=== PATIENT | male | born 1955 | race Caucasian/White ===

== ENCOUNTER 2022-03-02 12:09 | Inpatient (IN) | payer MEDICARE, OTHER ==
[~2022-03-02] VITALS: Ht 165.1 cm; Wt 75.2 kg
[~2022-03-02 12:09] MED LIST: LISHYD1012 PO
[2022-03-02] MEDS ORDERED: LOSA50 PO (12:51)
[2022-03-02] MEDS ORDERED: POTA10T PO (12:53)
[2022-03-02 13:49] LABS: BASOPHILS ABSOLUTE AUTO 0.03 K/mm3 (0.00-0.23); BASOPHILS PERCENT AUTO 0 % (0-2); EOSINOPHILS PERCENT AUTO 0 % (0-6); Hematocrit 43.2 % (37.0-53.0); Hemoglobin 16.2 g/dL (13.5-17.5); IMMATURE GRAN ABSOLUTE AUTO 0.05 K/mm3 (0.00-0.10); IMMATURE GRAN PERCENT AUTO 1 % (0-1); LYMPHOCYTES ABSOLUTE AUTO 0.76 K/mm3 (0.84-5.20); LYMPHOCYTES PERCENT AUTO 8 % (21-46); MONOCYTES ABSOLUTE AUTO 0.62 K/mm3 (0.16-1.47); MONOCYTES PERCENT AUTO 6 % (4-13); Mean Corpuscular HGB 33.3 pg (26.0-34.0); Mean Corpuscular HGB Conc 37.5 g/dL (31.5-36.5); Mean Corpuscular Volume 89 fL (80-100); Mean Platelet Volume 9.5 fL (9.1-12.4); NEUTROPHILS ABSOLUTE AUTO 8.67 K/mm3 (1.96-9.15); NEUTROPHILS PERCENT AUTO 86 % (41-73); Platelet Count 217 K/mm3 (150-400); RDW Coefficient Variation 11.6 % (11.7-14.2); RDW Standard Deviation 37.2 fL (35.1-46.3); Red Blood Cell Count 4.86 M/mm3 (4.30-5.90); White Blood Cell Count 10.13 K/mm3 (4.00-11.30)
[2022-03-02 13:51] LABS: Albumin, Blood 3.4 g/dL (3.4-5.0); Albumin/Globulin Ratio 0.8 (0.8-1.8); Bilirubin, Total 1.3 mg/dL (0.1-1.0); Bun/Creatinine Ratio 13.3 (12.0-20.0); Calcium, Blood 9.2 mg/dL (8.5-10.1); Creatinine, Blood 1.05 mg/dL (0.60-1.20); Globulin, Blood 4.4 g/dL (2.2-4.0); Potassium, Blood 2.6 mmol/L (3.5-5.5); Total Protein, Blood 7.8 g/dL (6.4-8.2)
[2022-03-02 14:07] LABS: Influenza A, PCR NEGATIVE (NEGATIVE); Influenza B, PCR NEGATIVE (NEGATIVE); Resp Syncytial Virus, PCR NEGATIVE (NEGATIVE)
[2022-03-02 14:27] LABS: SARS-Cov-2 (COVID-19) PCR, MMC POSITIVE (NEGATIVE)
--- NOTE | 2022-03-02 17:19 | NUR ---
Patient admitted for Hypoxemia & Pneumonia, COVID + isolation precautions in place. Patient reports frequent productive cough, denies pain/discomfort. Vitals stable, afebrile, saturations stable on 2L/oxygen. Patient does not use oxygen at home. IV in left AC, IV Potassium infusing, NS continous fluids ordered. Low sodium/potassium, patient denies IGNACIO, N/V. Tele in place, NSR 71.
--- NOTE | 2022-03-03 03:10 | NUR ---
03/02/22 1946 PT LYING IN BED, REPORTS SOB, ON 2L NC AT 93%. TELE NSR AT 71. SCD'S ON. TEMP 101.0. BP 175/81. WILL GIVE TYLENOL AND WILL RECHECK BP AT 2200 WHEN HYDRALAXINE CAN BE GIVEN AGAIN. NO OTHER APPARENT SIGNS OF DISTRESS. PT DENIES NEED FOR ANYTHING AT THIS TIME. CALL LIGHT IS IN REACH. 2157 PT'S BP IS 151/92, HR 119, TEMP 99.0. TELE IS SHOWING AFIB IN 110'S TO 150'S. WILL GIVE HYDRALAZINE AND EVAL FOR EFFECT. NO OTHER APPARENT SIGNS OF DISTRESS AT THIS TIME. CALL LIGHT IS IN REACH. PT DENIES CHEST PAIN. [address] MAYA RE PTS TELE SHOWING AFIB IN 110'S TO 150'S. GOT ORDERS FOR CARDIZEM, ADMINISERED. WILL EVAL FOR EFFECT. NO OTHER APPARENT SIGNS OF DISTRESS. CALL LIGHT IS IN REACH. PT DENIES CHEST PAIN. 2313 PT'S BP IS 151/94, HR IS 150, TELE SHOWING 110'S TO 150'S AFIB. WILL CALL AND F/U WITH ANY ORDERS. PT DENIES CHEST PAIN. [address] MAYA, GOT ORDERS FOR ANOTHER DOSE OF CARDIZEM. ADMINISTERED. WILL EVAL FOR EFFECT. NO OTHER APPARENT SIGNS OF DISTRESS. PT DENIES CHEST PAIN. CALL LIGHT IS IN REACH. PT'S HR ON TELE IS 160'S TO 170'S SV TACH WHILE PT WAS ON TOILET, STILL DENIES CHEST PAIN. 03/03/22 0010 PT'S BP IS 151/94, HR 150, TELE SHOWING 120'S TO 150'S AFIB. WILL CALL AND FOLLOW UP ON ORDERS. NO OTHER APPARENT SIGNS OF DISTRESS. PT DENIES CHEST PAIN. CALL LIGHT IS IN REACH. [address] RUTH, GOT ORDERS FOR PO METOPROLOL TARTRATE AND IV METOPROLOL, ADMINISTERED, WILL EVAL FOR EFFECT. NO OTHER APPARENT SIGNS OF DISTRESS. PT DENIES CHEST PAIN. CALL LIGHT IS IN REACH. 0130 PT'S BP IS 130/90, HR IS 113. TELE SHOWING 110'S AFIB. WILL CONTINUE TO MONITOR.
--- NOTE | 2022-03-03 03:26 | NUR ---
PT LYING IN BED, EYES CLOSED, APPEARS TO BE RESTING. BREATHING IS EVEN, UNLABORED. NO APPARENT SIGNS OF DISTRESS. CALL LIGHT IS IN REACH. TELE SHOWING 110'S AFIB.
--- NOTE | 2022-03-03 03:27 | NUR ---
PT IS AAO X 4, ON 2L 93%, DOES HAVE SOB. OCCASIONAL PRODUCTIVE COUGH, PER PT, CLEAR THIN SPUTUM. SCD'S. TELE WAS NSR AT 71 AT HS, HOWEVER, BY 2157, PT'S TELE WAS SHOWING AFIB IN 110'S TO 150'S. PT HAS NO HISTORY OF AFIB. PT ALSO HAD A BP OF 175/81 AND A TEMP OF 101.0 AT HS. PT GIVEN TYLENOL AND HYDRALAZINE FOR BP AND TEMP. PT'S AFIB RANGED FROM 110'S TO 150'S FROM 2157 TO 129. AT ONE POINT, WHILE HE WAS ON THE TOILET, HIS TELE SHOWED SV TACH IN 160'S TO 170'S, IT WENT BACK TO 110'S TO 150'S AFTER HE WENT BACK TO BED. HE WAS GIVEN CARDIZEM X 2, PO METOPROLOL AND IV METOPROLOL. AT 129 HIS AFIB CAME DOWN TO THE 110'S.
[2022-03-03 06:04] LABS: BASOPHILS ABSOLUTE AUTO 0.03 K/mm3 (0.00-0.23); BASOPHILS PERCENT AUTO 0 % (0-2); EOSINOPHILS PERCENT AUTO 0 % (0-6); Hematocrit 42.6 % (37.0-53.0); Hemoglobin 15.7 g/dL (13.5-17.5); IMMATURE GRAN ABSOLUTE AUTO 0.05 K/mm3 (0.00-0.10); IMMATURE GRAN PERCENT AUTO 0 % (0-1); LYMPHOCYTES ABSOLUTE AUTO 0.54 K/mm3 (0.84-5.20); LYMPHOCYTES PERCENT AUTO 5 % (21-46); MONOCYTES ABSOLUTE AUTO 0.38 K/mm3 (0.16-1.47); MONOCYTES PERCENT AUTO 3 % (4-13); Mean Corpuscular HGB 33.5 pg (26.0-34.0); Mean Corpuscular HGB Conc 36.9 g/dL (31.5-36.5); Mean Corpuscular Volume 91 fL (80-100); Mean Platelet Volume 9.5 fL (9.1-12.4); NEUTROPHILS ABSOLUTE AUTO 10.57 K/mm3 (1.96-9.15); NEUTROPHILS PERCENT AUTO 91 % (41-73); Platelet Count 220 K/mm3 (150-400); RDW Coefficient Variation 11.9 % (11.7-14.2); RDW Standard Deviation 39.1 fL (35.1-46.3); Red Blood Cell Count 4.69 M/mm3 (4.30-5.90); White Blood Cell Count 11.57 K/mm3 (4.00-11.30)
[2022-03-03 06:23] LABS: Bun/Creatinine Ratio 13.3 (12.0-20.0); Calcium, Blood 8.3 mg/dL (8.5-10.1); Creatinine, Blood 1.05 mg/dL (0.60-1.20); Potassium, Blood 2.9 mmol/L (3.5-5.5)
--- NOTE | 2022-03-03 06:54 | NUR ---
PT'S BP WASS 174/89, TEMP 100.8, GAVE TYLENOL AND HYDRALAZINE, PT'S TEMP IT NOW 99.0 AND BP IS 138/60, HR 87. PT DENIES NEED FOR ANYTHING AT THIS TIME, NO APPARENT SIGNS OF DISTRESS. CALL LIGHT IS IN REACH. NO OTHER CHANGES THIS SHIFT.
--- NOTE | 2022-03-03 08:26 | NUR ---
Patient reported to RN that he "took my meds this morning". Patient reported EMS told the patient to bring home meds to the hospital, RN admitted patient last night, and patient did not tell nurse that he had his own medications. Patient reports he took Losartan 100mg last night, & Hydrochlorothiazide 25mg this morning. Patient gave the 2 medication bottles to RN & RN locked in patient drawer/outside of room. Notified MD that patient administred losartan & hydrochlorothiazide to himself. RN provided education on medication safety, diuretics and low potassium levels. Patient verbalized understanding.
--- NOTE | 2022-03-03 16:12 | NUR ---
DAYSHIFT SUMMARY Patients heart rate is stable this shift, Sinus Rhythm rate of 67, blood pressure WNL. Frequent nonproductive cough, patient requiring 2L oxygen, unable to titrate patient today. IV/PO Potassium administred, normal saline continous infusion. Patient has poor appetite, sleeping comfortably in bed all day. Vitals stable.
[2022-03-03 17:07] LABS: Albumin, Blood 2.9 g/dL (3.4-5.0); Anion Gap 11 mmol/L (6-16); Blood Urea Nitrogen 18 mg/dL (8-24); Bun/Creatinine Ratio 16.7 (12.0-20.0); CO2, Blood 22 mmol/L (21-32); Calcium, Blood 8.6 mg/dL (8.5-10.1); Chloride, Blood 97 mmol/L (98-108); Creatinine, Blood 1.08 mg/dL (0.60-1.20); Glomerular Filtration Rate 75 (60-); Glucose, Blood 136 mg/dL (70-99); Phosphorus, Blood 1.6 mg/dL (2.5-4.9); Potassium, Blood 3.3 mmol/L (3.5-5.5); Sodium, Blood 130 mmol/L (136-145)
--- NOTE | 2022-03-04 05:29 | NUR ---
SHIFT SUMMARY: PT IS ALERT AND ORIENTED. PT IS CALM AND COOPERATIVE WITH CARE. PT CALLS APPROPRIATELY. PT IS INDEPENDENT IN THE ROOM. PT REPORTS SOB ON EXERTION AND WITH COUGH, O2 @ 5 L KEEPING SATS > 90%. PT DENIES PAIN, NAUSEA, AND VOMITING. PT SLEPT MUCH OF THE NIGHT WHEN NOT DISTURBED. NO ACUTE CHANGES OR COMPLICATIONS THIS SHIFT. BED IN LOW POSITION, CALL LIGHT WITHIN REACH. WILL CONTINUE TO MONITOR AND REPORT TO DAY NURSE.
[2022-03-04 06:22] LABS: Albumin, Blood 2.9 g/dL (3.4-5.0); Anion Gap 13 mmol/L (6-16); Blood Urea Nitrogen 16 mg/dL (8-24); Bun/Creatinine Ratio 17.9 (12.0-20.0); CO2, Blood 18 mmol/L (21-32); Calcium, Blood 8.6 mg/dL (8.5-10.1); Chloride, Blood 95 mmol/L (98-108); Glomerular Filtration Rate 94 (60-); Glucose, Blood 124 mg/dL (70-99); Magnesium, Blood 2.1 mg/dL (1.6-2.4); Phosphorus, Blood 1.8 mg/dL (2.5-4.9); Potassium, Blood 2.9 mmol/L (3.5-5.5); Sodium, Blood 126 mmol/L (136-145)
[2022-03-04 06:45] LABS: BASOPHILS ABSOLUTE AUTO 0.03 K/mm3 (0.00-0.23); BASOPHILS PERCENT AUTO 0 % (0-2); EOSINOPHILS PERCENT AUTO 0 % (0-6); Hematocrit 41.3 % (37.0-53.0); Hemoglobin 15.1 g/dL (13.5-17.5); IMMATURE GRAN ABSOLUTE AUTO 0.07 K/mm3 (0.00-0.10); IMMATURE GRAN PERCENT AUTO 1 % (0-1); LYMPHOCYTES ABSOLUTE AUTO 0.72 K/mm3 (0.84-5.20); LYMPHOCYTES PERCENT AUTO 6 % (21-46); MONOCYTES ABSOLUTE AUTO 0.38 K/mm3 (0.16-1.47); MONOCYTES PERCENT AUTO 3 % (4-13); Mean Corpuscular HGB 33.5 pg (26.0-34.0); Mean Corpuscular HGB Conc 36.6 g/dL (31.5-36.5); Mean Corpuscular Volume 92 fL (80-100); Mean Platelet Volume 10.1 fL (9.1-12.4); NEUTROPHILS ABSOLUTE AUTO 10.92 K/mm3 (1.96-9.15); NEUTROPHILS PERCENT AUTO 90 % (41-73); Platelet Count 237 K/mm3 (150-400); RDW Standard Deviation 40.6 fL (35.1-46.3); Red Blood Cell Count 4.51 M/mm3 (4.30-5.90); White Blood Cell Count 12.12 K/mm3 (4.00-11.30)
--- NOTE | 2022-03-04 14:13 | NUR ---
CARE ROUNDING NOTE- PT NOTABLY BREATHING FAST. DENIES SOB. REQUESTED ANOTHER STAFF MEMBER TO BRING VITALS CART. RESP RATE 40 DESPIDE THE DENIAL OF SOB. PT FACE FLUSHED. HE HAD PREVIOUSLY DECLINED BIOX, SPOKE TO HIM ABOUT THE IMPORTANCE OF MONITORING O2 SATS. SATS WHEN PLACED ON THE MONITOR WERE 83% ON 6L VIA NC. RT CONTACTED PT PLACED ON HIGH FLOW NC AT 10 L SATS 87-92%. PT ENCOURAGED TO ROLL ON HIS SIDE TO ASSIST WITH VENTILATION, STATES HE FEELS A LITTLE BETTER THIS WAY SATS IMPROVED TO 90-94%. CALLED DR MERIDA WITH THE UPDATE ON PT CONDITION, RECIEVED ORDERS FOR AIRVO AND A TRANSFER TO PCU. PHOTOGRAPHIC EQUIPMENT TECHNICIAN NOTIFIED BED REQUESTED. PT HAS HAD NO APPETITE AND HAS DECLINED TO EAT AT ALL THIS SHIFT. PO POTASSIUM WAS GIVEN WELL IV. IV POTASSIUM JUST FINISHED INFUSING. REMDESIVIER STARTED INFUSING NOW. NS ORDERED AT 75ML/HR SET TO RUN AFTER THE REMDESIVIER.
--- NOTE | 2022-03-04 15:01 | NUR ---
CARE ROUNDING NOTE- PT KASANDRAOPALRan WAS ALARMING SATS IN THE MID 80'S. WENT IN TO SEE THE PT. PT ALERT, STATES HE JUST GOT UP TO USE THE URINAL. SATS STAYING IN THE 85-86% RANGE, WAITED TO SEE IF THE PT WOULD RECOVER AND SATS WENT BACK DOWN TO 84%. CALLED RT OLIVIER AND SHE INCREASED FIO2. SATS 91-93% ON AIRVO 40L AT 53% FIO2. PT ENCOURAGED TO CALL FOR STAFF PRIOR TO USING THE URINAL AGAIN. CALLED PT DAUGHTER WITH AN UPDATE SHE IS AWARE THE PT WWILL BE TRANSFERED TO PCU WHEN A BED IS AVAILABLE. CALLED SON AND LEFT A MESSAGE REQUESTING A CALL BACK. PT REQUESTED THAT I CALL HIS FAMILY TO LET THEM KNOW WHAT WAS GOING ON.
[2022-03-04 15:33] LABS: Albumin, Blood 2.7 g/dL (3.4-5.0); Albumin/Globulin Ratio 0.7 (0.8-1.8); Bilirubin, Direct 0.3 mg/dL (0.0-0.3); Bilirubin, Indirect 0.5 mg/dL (0.1-0.7); Bilirubin, Total 0.8 mg/dL (0.1-1.0); Total Protein, Blood 6.7 g/dL (6.4-8.2)
--- NOTE | 2022-03-04 17:52 | NUR ---
PT TRANSFERRED FROM MEDICAL FLOOR TO PCU 16 PT REQUIRING HIGH O2 MAINTENANCE REPORT RECEIVED FORM NEAL SLOAN. PT ON AIRVO SETTINS 40L 50% FIO2 UPON ARRIVAL PT DYSPNEIC SATS KEPT ABOVE 90% WILL DESAT TO 88% WITH EXERTION, VITALS HRR 60-80'S AFIB, BP SYSTOLIC 140'S, FEBRILE AT 99.0 FROM 101 AFTER TYLENOL WAS RECEIVED FROM MEDICAL FLR. PT IS ALERT AND ORIENTED PLEASANT AND COOPERATIVE, INDEPENDENT IN THE ROOM BUT INSTRUCTED TO CALL FOR HELP TO GET ASSISTANCE DUE TO CORDS AND LINES HOOKED UP WITH THE PT, PT HAS BEEN CALLING APPROPRIATELY. PT HAS POOR APPETITE DECLINED DINNER TRAY, HAS LR RUNNING AT 75MLS/HR. DENEIS ANY CHEST PAIN OR DISCOMFORT. CAN REPOSITION SELF IN BED, SON AT BEDSIDE AT THIS TIME, PT NOW RESTING CALL LIGHTS IN REACH WILL REPORT TO ONCOMING SHIFT
--- NOTE | 2022-03-04 20:29 | NUR ---
CARE ASSUMPTION: RECEIVED REPORT FROM LUTHER WEBB. PATIENT MEDICAL FLOOR TRANSFER TODAY. RESTING IN BED WITH AIRVO IN PLACE AT 40L/51% AND SATS >89%. PATIENT DESATS QUICKLY WITH MINMAL MOVEMENT AND TAKES TIME TO RECOVER, BUT DOES NOT REPORT FEELING SOB OR CHEST PAIN EVEN WHEN DESATING. BED LOW WITH CALL LIGHT IN REACH. BED ALARM SET.
[2022-03-05 05:03] LABS: Albumin, Blood 2.5 g/dL (3.4-5.0); Albumin/Globulin Ratio 0.7 (0.8-1.8); Bun/Creatinine Ratio 16.4 (12.0-20.0); Creatinine, Blood 0.97 mg/dL (0.60-1.20); Globulin, Blood 3.4 g/dL (2.2-4.0); Potassium, Blood 3.2 mmol/L (3.5-5.5); Total Protein, Blood 5.9 g/dL (6.4-8.2)
--- NOTE | 2022-03-05 05:36 | NUR ---
CALL TO MD: PATIENT K 3.2 - RECEIVED NEW ORDERS. PATIENT HAD SHORT RUN OF SVT WITH HR 160S, HAD DECREASED TO 108 WHEN RN ENTERED ROOM BUT BP 216/92. DR MAYA ORDERED ADDITIONAL DOSE OF APRESOLINE FOR BP.
--- NOTE | 2022-03-05 06:17 | NUR ---
SHIFT SUMMARY: PATIENT HAS BEEN HYPERTENSIVE AND FEBRILE PERIODICALLY T/O SHIFT. DECLINED TYLENOL FOR FEVER. O2 DEMANDS HAVE INCREASED THIS SHIFT AND PATIENT DESATS WITH MINIMAL MOVEMENT - ESPECIALLY WHEN ROLLING TO SIDE TO USE URINAL. RT NOTIFIED AND ADJUSTED AIRVO SETTINGS TO MAINTAIN O2 SATS >90%. MEDICATED PER EMAR. BED LOW WITH CALL LIGHT IN REACH. WILL CONTINUE TO MONITOR AND REPORT TO ONCOMING RN.
[2022-03-05 16:02] LABS: Albumin, Blood 2.5 g/dL (3.4-5.0); Anion Gap 8 mmol/L (6-16); Blood Urea Nitrogen 17 mg/dL (8-24); Bun/Creatinine Ratio 17.2 (12.0-20.0); CO2, Blood 24 mmol/L (21-32); Calcium, Blood 8.3 mg/dL (8.5-10.1); Chloride, Blood 101 mmol/L (98-108); Creatinine, Blood 0.99 mg/dL (0.60-1.20); Glomerular Filtration Rate 83 (60-); Glucose, Blood 180 mg/dL (70-99); Phosphorus, Blood 2.6 mg/dL (2.5-4.9); Potassium, Blood 3.2 mmol/L (3.5-5.5); Sodium, Blood 133 mmol/L (136-145)
--- NOTE | 2022-03-05 18:07 | NUR ---
SHIFT SUMMARY Pt alert, orineted, calm and cooperative with care. Pt resting in bed. Pt mich pain, chest pain/pressure, nausea, dizziness and lightheadedness. Pt reports mild sob at times, spo2 >90% at rest on airvo this am at 60l at 94%, titrated t/o shift by rt to 55l 79% via airvo, desaturation with movement, recovers quickly. Pt tele sinus 80-100's this am, this afternoon 60's, three 5 beat runs of vtach, hr 50-140's appears afib, notified Dr Del Rosario, administered scheduled metoprolol hr 50-60's at this time, bp this am elevated, Dr Del Rosario increased medications this am, trending down t/o shift. Abd soft, nontender, hyperactiver. Using urinal in bed. Elevated temp this am, tmax 102.5, administered tylenol with positive results. Other vss. No other acute changes noted. Will continue to monitor.
--- NOTE | 2022-03-05 22:48 | NUR ---
CARE ASSUMPTION: PATIENT IN BED WITH AIRVO SETTINGS 55L/77% AND O2 SAT >90%. PATIENT FAMILY AT BEDSIDE. A&O X4. BP SLIGHTLY ELEVATED WITH MAP OF 96, AFEBRILE. PATIENT REQUESTED TO USE BSC AND WAS STABLE WITH SBA. BED LOW WITH CALL LIGHT IN REACH.
--- NOTE | 2022-03-06 06:37 | NUR ---
SHIFT SUMMARY: NO ACUTE CHANGES T/O THE NIGHT. PATIENT CONTINUES TO DESAT TO 70S WHEN USING URINAL OR BSC AND INSISTS "I'M FINE" WHEN STAFF TRY TO REPOSITION OR ENCOURAGE DEEP BREATHING DURING THESE EPISODES. ALTERNATED LYING ON LEFT AND RIGHT SIDE WITH GOOD SUCCESS. MEDICATED PER EMAR. PATIENT'S COUGH HAS BECOME LOOSER T/O SHIFT. PATIENT DECLINES COUGH SYRUP HE DOESN'T LIKE THE FLAVOR. PATIENT REPORTS HIS APPETITE AND SENSE OF TASTE ARE RETURNING. BED LOW AND CALL LIGHT IN REACH. WILL CONTINUE TO MONITOR AND REPORT TO ONCOMING RN.
[2022-03-06 08:55] LABS: Albumin, Blood 2.5 g/dL (3.4-5.0); Anion Gap 7 mmol/L (6-16); Blood Urea Nitrogen 18 mg/dL (8-24); Bun/Creatinine Ratio 20.2 (12.0-20.0); CO2, Blood 25 mmol/L (21-32); Calcium, Blood 8.6 mg/dL (8.5-10.1); Chloride, Blood 103 mmol/L (98-108); Creatinine, Blood 0.89 mg/dL (0.60-1.20); Glomerular Filtration Rate 94 (60-); Glucose, Blood 150 mg/dL (70-99); Potassium, Blood 3.3 mmol/L (3.5-5.5); Sodium, Blood 135 mmol/L (136-145)
--- NOTE | 2022-03-06 17:24 | NUR ---
Shift Summary Pt alert, oriented. Calm and cooperative with care. Pt sba in room to assist with cords. Pt on airvo 55l 77-82% fio2, spo2 >90% at rest, desatruates with minimal talking or movement, recovers quickly. Pt turning on sides ind when resting, encouraged side sleeping and proning. Ls dim t/o fine crackles to bilateral bases. Tele sinus 50-60's, bp stable, no events noted on tele. Abd soft, nontender. Other vss. Pt recieving iv steroids, antiviral and antibiotics. No other acute changes noted. Will continue to monitor.
--- NOTE | 2022-03-07 05:57 | NUR ---
SHIFT SUMMARY ASSUMED CARE OF PT AT 1900. PT IS A/OX4. HEART SOUNDS REGULAR, LUNG SOUNDS HAVE CRACKLES AT THE BASES. PT WORE AIRVO 55L/77%, PT ONLY DESATURATED ONCE TONIGHT WHILE GETTING UP TO BSC. RT TALKED WITH PT ABOUT PRONING OR LAYING ON HIS SIDE, WHICH HAS HELPED. PT WAS 1P SBA TO BSC. STOOL IS RUNNY. NO ACUTE CHANGES DURING THE NIGHT.
[2022-03-07 06:00] LABS: Albumin, Blood 2.5 g/dL (3.4-5.0); Anion Gap 8 mmol/L (6-16); Blood Urea Nitrogen 24 mg/dL (8-24); Bun/Creatinine Ratio 26.5 (12.0-20.0); CO2, Blood 25 mmol/L (21-32); Calcium, Blood 8.7 mg/dL (8.5-10.1); Chloride, Blood 107 mmol/L (98-108); Creatinine, Blood 0.91 mg/dL (0.60-1.20); Glomerular Filtration Rate 92 (60-); Glucose, Blood 151 mg/dL (70-99); Phosphorus, Blood 3.1 mg/dL (2.5-4.9); Potassium, Blood 3.7 mmol/L (3.5-5.5); Sodium, Blood 140 mmol/L (136-145)
--- NOTE | 2022-03-07 18:19 | NUR ---
END OF SHIFT SUMMARY: TAM HAS BEEN AFEBRILE, ALERT AND ORIENTED. STILL ON DECADRON, AND ROCEPHIN PROPHALAXIS ACCORDING TO HOSPITALIST. FAMILY WAS WITH THE PATIENT DURING MOST OF THE AM AND NOW STARTING THIS EVENING. PATIENT IS ABLE TO MAKE NEEDS KNOWN, USE CALL LIGHT APPROPRIATELY. APPETITE IS VERY WELL. RESPIRATORY EFFORT HAS DECREASED EVEN THOUGH HE IS ON 60L L AT 76% WHICH IS SLIGHTLY HIGHER, BUT PATIENT HAS BEEN IN THE CHAIR ALMOST THE ENTIRE DAY, AND HAS NOT DESATURATED WITH EXERTION MUCH, AND MUCH YESTERDAY. PATIENT HAS BEEN SR WITH PAC'S, PVC'S BOTH OCCASSIONALLY, AND BBB 60-70'S. PATIENT HAS BEEN ASYMPTOMATIC OF THESE. RR ALWAYS BELOW 20 AT REST. SOME DYSPNEA WITH EXERTION IMPROVING. IV REDRESSED. WILL CONTINUE TO MONITOR UNTIL SHIFT CHANGE.
[2022-03-08 05:30] LABS: Magnesium, Blood 2.5 mg/dL (1.6-2.4)
[2022-03-08 05:31] LABS: Albumin, Blood 2.5 g/dL (3.4-5.0); Anion Gap 9 mmol/L (6-16); Blood Urea Nitrogen 27 mg/dL (8-24); Bun/Creatinine Ratio 32.6 (12.0-20.0); CO2, Blood 25 mmol/L (21-32); Calcium, Blood 8.6 mg/dL (8.5-10.1); Chloride, Blood 108 mmol/L (98-108); Creatinine, Blood 0.83 mg/dL (0.60-1.20); Glomerular Filtration Rate 96 (60-); Glucose, Blood 142 mg/dL (70-99); Phosphorus, Blood 3.2 mg/dL (2.5-4.9); Sodium, Blood 142 mmol/L (136-145)
--- NOTE | 2022-03-08 06:09 | NUR ---
SHIFT SUMMARY ASSUMED CARE OF PT AT 1900. PT IS A/OX4. HEART SOUNDS REGULAR. LUNG SOUNDS HAVE FINE CRACKLES AT THE BASES. PT ONLY DESATS WITH ACTIVITY. PT REMAINS ON AIRVO AT 60L/80%. PT STATES THAT HE IS FEELING MUCH BETTER BUT BORED. PT COUGHING UP LESS SPUTUM. PT WAS 1P ASSIT TO BSC. HAVING LOOSE BROWN STOOLS. NO ACUTE EVENTS.
--- NOTE | 2022-03-08 18:32 | NUR ---
END OF SHIFT SUMMARY: PATIENT HAS BEEN AFEBRILE, AIRVO AT 55L AT 49% CURRENLTY, WAS ABLE TO TITRATE DOWN A LARGE AMOUNT TODAY. PATIETN SPO2 >90% NO CONCERNS FROM THIS RN AT THIS TIME. PATIENT HAS BEEN SHOWING MORE TOLERANCE TO ACTIVITY. DENIES PAIN OF ANY KIND. NO [place] PAIN OR PRESSURE, OR SOB AT REST. RR HAS BEEN UNDER 20 EVEN WITH REPOSITIONING FROM THE BED, TO THE RECLINER WHICH HE WAS IN MOST OF THE DAY. APPEPITITE IS GOOD SKIPPED LUNCH DUE TO CHOICE OF MEAL, WILL ENSURE A MENU IS POPULATED FOR THE PATIENT IN THE AM. PATIENT HAS BEEN PLEASANT ALERT AND ORIENTED. NO CONCERNS FROM THIS RN, THE FAMILY, OR THE PATIENT AT TIME OF NOTE. WILL CONTINUE TO MONITOR UNTIL SHIFT CHANGE.
--- NOTE | 2022-03-08 21:21 | NUR ---
PT A&OX4. PT ON AIRPO AT 50LPM/50% O2. O2 SATS DECREASE INTO 80'S WITH MOVEMENT BUT GO BACK UP INTO MID 90'S QUICKLY. PT RETURNED SELF TO BED, O2 SATS DROPPING TO 74%, AIRVO INCREASED SHORTLY TO 54%, INCREASED BACK INTO 90'S. PT UPSET WHEN SETTINGS ON AIRVO CHANGED STATES "I DON'T WANT TO GO BACKWARDS". EDUCATION PROVIDED NEED FOR SHORT TIME INCREASE, NOW SETTINGS BACK TO WHAT THEY WERE PREVIOUSLY, PT COMES CALM AND STATES "OKAY, I DIDN'T UNDERSTAND THAT". O2 SAT CONTINUE TO DROP TO 86% THEN INCREASE TO 90'S, WILL MONITOR. HR IS SINGUS RHYTHM IN THE 60'S. SITTING UP IN BED WATCHING TV. CALL LIGHT IN REACH.
--- NOTE | 2022-03-09 05:56 | NUR ---
PT HAS MAINTAINED O2 SATS AT 94-96% WHEN SLEEPING THROUGHOUT THE NIGHT. RT DECREASED AIRVO SETTING TO 50LMP/45% ABLE TO MAINTAIN WHEN SLEEPING, WHEN AWAKE PT STATES DROPPED TO 86% AND MAINTAINED. DENIES SOB. INCREASED AIRVO TO 50LPM/50% AND INFORMED PRISCILLA IN RT OF CHANGE. PT NOW AROUND 89-93%. SITING UP IN BED. CALL LIGHT IN REACH.
--- NOTE | 2022-03-09 17:09 | NUR ---
SHIFT SUMMARY PT A/O X4 AND COOPERATIVE OF CARE. VSS THROUGHOUT SHIFT WITH 02 SATS IN THE 90'S WHILE ON AIRVO. PT AIRVO TITRATED FROM 60L/ 50% FIO2 TO 40L/45% FIO2, PT TOLERATING WELL. PT WAS UP IN ROOM TO TRANSFER TO AND FROM COMMODE AND TRANSFERED SELF TO CHAIR, PT SATS DROPPED TO THE MID 80'S WHILE AMBULATING, SATS RECOVERED TO 90'S QUICKLY WITH NO INCREASE TO O2. PT HAVING PRODUCTIVE COUGHING, CLEAR MUCOUS. PT DO SMALLY LEG EXERCISES WHILE IN CHAIR, SATS MAINTIAN IN THE 90'S. REPORT GIVEN TO HUGO SLOAN AROUND 1630.
--- NOTE | 2022-03-09 21:16 | NUR ---
PT IS A&OX4. DENIES ANY SOB OR CHEST PAIN THIS EVENING. AIRVO IN PLACE RUNNING AT 40LPM AND 45%. RLL OF LUNGS IS COARSE BUT ALL OTHER LOBES CLEAR. VOIDING TEA COLORED AMER URINE IN URINAL. VSS. DENIES NEEDS.
--- NOTE | 2022-03-10 06:35 | NUR ---
PT HAS HAD NO COMPLAINTS THROUGHOUT NIGHT. OCCASIONALLY DESATURATES TO 86% BUT IS ABLE TO COUGH AND DEEP BREATH TO GET O2 SATS BACK UP TO LOW 90'S. DECLINES ANY SOB WITH DESATURATION. AIRVO NOW AT 40LPM/40%. VOIDING WITHOUT DIFFICULTY. HR IS SINUS HUMBERTO IN THE 50'S DURING SHFIT.
--- NOTE | 2022-03-10 17:28 | NUR ---
SHIFT SUMMARY: PT CONTINUES A&Ox4, COOPERATIVE W/CARE, USES CALL LIGHT APPROPRIATELY. INITIALLY, PT WAS ON AIRVO 40L/40%FIO2 THEN WAS TRIALED ON 15 L/MIN VIA HIFLOW NC. PT TOLERATING WELL SO FAR, O2 SATS MAINTAINING LOW 90s%. OCCASIONAL COUGH PRODUCTIVE OF CLEAR SPUTUM. SIN HUMBERTO/RHYTHM W/RATE 50s-60s ON MONITOR. PT TRANSFERS SELF F/BED TO BEDSIDE CHAIR AND COMMODE WITH MINIMAL DESATURATION. WILL CONTINUE TO MONITOR AND TREAT ACCORDINGLY UNTIL CHANGE OF SHIFT.
--- NOTE | 2022-03-10 20:51 | NUR ---
PT IS A&OX4. DENIES ANY SOB OR CHEST PAIN. PT ON AIRVO 40LPM 40%. PT TOLERATING WELL WITH O2 AT 92% WITH OCCASIONAL DESATURATIONS TO 87%, QUICKLY GOES BACK UP. VSS. HR SINUS HUMBERTO IN 50'S. FRESH WATER PROVIDED. DENIES FURTHER NEEDS. CALL LIGHT IN REACH.
--- NOTE | 2022-03-11 06:01 | NUR ---
HR HAS REMAINED IN SB IN THE 50'S OR HIGH 40'S. PT ABLE TO MAINTAIN O2 SATS IN LOW 90'S ON AIRVO 40L/40%. VSS. NO COMPLAINTS THROUGHT NIGHT.
--- NOTE | 2022-03-11 16:22 | NUR ---
SHIFT SUMMARY: NO ACUTE CHANGES TO PT STATUS TODAY. PT CONTINUES A&Ox4, USING CALL LIGHT APPROPRIATELY. PT TRANSITIONED FROM AIRVO TO HIFLOW NC THIS AM, CURRENTLY RECEIVING O2 AT 11L/MIN, MAINTAINING O2 SATS >92%. SB/SR ON MONITOR. PT TRANSFERS SELF INDEPENDENTLY TO/FROM BED/CHAIR/BSC. AT THIS TIME, PT SITTING IN BEDSIDE CHAIR W/CALL LIGHT IN REACH. WILL CONTINUE TO MONITOR AND TREAT ACCORDINGLY UNTIL CHANGE OF SHIFT.
[2022-03-12 04:15] LABS: Base Excess Venous 3.5 mmol/L; Bicarbonate Venous 27.6 mmol/L (24.0-30.0); PCO2 Venous 34.2 mmHg (38-42)
[2022-03-12 04:46] LABS: Hematocrit 42.2 % (37.0-53.0); Hemoglobin 15.1 g/dL (13.5-17.5); Mean Corpuscular HGB Conc 35.8 g/dL (31.5-36.5); Mean Corpuscular Volume 95 fL (80-100); Mean Platelet Volume 9.1 fL (9.1-12.4); Platelet Count 403 K/mm3 (150-400); RDW Coefficient Variation 11.9 % (11.7-14.2); Red Blood Cell Count 4.44 M/mm3 (4.30-5.90); White Blood Cell Count 15.69 K/mm3 (4.00-11.30)
--- NOTE | 2022-03-12 04:51 | NUR ---
SHIFT SUMMARY: PT HAS BEEN A&OX4. NO COMPLAINTS OF SOB OR CHEST PAIN. HR SR TO SB ALL NIGHT LONG. HIGH FLOW O2 DECREASED TO 9LPM WITH PT TOLERATING WELL ALL THROUGHOUT NIGHT. ALL OTHER VSS. VOIDING CLEAR, YELLOW URINE WITHOUT DIFFICUTLY. RESTING IN BED THROUGHOUT NIGHT.
[2022-03-12 05:04] LABS: Bun/Creatinine Ratio 27.2 (12.0-20.0); Calcium, Blood 8.4 mg/dL (8.5-10.1); Creatinine, Blood 0.85 mg/dL (0.60-1.20); Potassium, Blood 4.7 mmol/L (3.5-5.5)
[2022-03-12 05:59] LABS: BAND PERCENT MAN 1 % (0-8); BASOPHILS PERCENT MAN 0 % (0-2); EOSINOPHILS ABSOLUTE MAN 0.15 K/mm3 (0.00-0.68); EOSINOPHILS PERCENT MAN 1 % (0-6); LYMPHOCYTES ABSOLUTE MAN 0.94 K/mm3 (0.84-5.20); LYMPHOCYTES PERCENT MAN 6 % (21-46); MONOCYTES ABSOLUTE MAN 0.78 K/mm3 (0.16-1.47); MONOCYTES PERCENT MAN 5 % (4-13); SEG NEUTROPHILS PERCENT MAN 87 % (41-73); TOTAL CELLS COUNTED 100
[2022-03-12] MEDS ORDERED: AMLO5 PO (15:22)
[2022-03-12] MEDS ORDERED: PYRI60 PO (15:24)
[2022-03-12] MEDS ORDERED: METO25ER PO (15:24)
[2022-03-12] MEDS ORDERED: XARELTO20 MG PO (15:26)
[2022-03-12] MEDS ORDERED: DEXA2 PO (15:28)
--- NOTE | 2022-03-12 18:01 | NUR ---
SHIFT SUMMARY/PENDING DISCHARGE: PT MAINTAINING O2 SATS >90% ON 4L/MIN AT REST. PT HAS BEEN EVALUATED AND CLEARED FOR DISCHARGE BY DR GOMEZ, HOME O2 EVALUATION HAS BEEN COMPLETED. IV ACCESS HAS BEEN DC'd WNL, PT PROVIDED WITH DC PAPERWORK AND INSTRUCTIONS, VERBALIZES UNDERSTANDING. AT THIS TIME, PT RESTING IN BEDSIDE CHAIR AWAITING DELIVERY OF O2 BY [facility] PRIOR TO DISCHARGE. CONTINUOUS SPO2 MONITORING CONTINUES. WILL MONITOR AND TREAT ACCORDINGLY UNTIL PT DC OR CHANGE OF SHIFT.
== END 2022-03-12 19:08 | disposition home or self-care (01) | DRG 177 ==
LOC: ER 12:09 → MEDS 16:27 → PCU 16:27 → MEDS 16:29 → PCU 03-04 16:19
PROVIDERS: Emergency Medicine; Internal Medicine; ADMIT Internal Medicine
PROC: 8E0ZXY6 Isolation (ICD-10-PCS; principal; 2022-03-02)
PROC: XW033E5 Introduction of Remdesivir Anti-infective into Peripheral Vein, Percutaneous Approach, New Technology Group 5 (ICD-10-PCS; 2022-03-02)
PROC: 5A0955A Assistance with Respiratory Ventilation, Greater than 96 Consecutive Hours, High Flow/Velocity Cannula (ICD-10-PCS; 2022-03-02)
PROC: 3E0333Z Introduction of Anti-inflammatory into Peripheral Vein, Percutaneous Approach (ICD-10-PCS; 2022-03-04)
PROC: XW0DXM6 Introduction of Baricitinib into Mouth and Pharynx, External Approach, New Technology Group 6 (ICD-10-PCS; 2022-03-05)
PROC: 3E0DX3Z Introduction of Anti-inflammatory into Mouth and Pharynx, External Approach (ICD-10-PCS; 2022-03-10)
DX: U07.1 COVID-19 (principal); G70.01 Myasthenia gravis with (acute) exacerbation; J12.82 Pneumonia due to coronavirus disease 2019; J96.01 Acute respiratory failure with hypoxia; E87.1 Hypo-osmolality and hyponatremia; E87.3 Alkalosis; Z51.5 Encounter for palliative care; I10 Essential (primary) hypertension; I48.0 Paroxysmal atrial fibrillation; F10.20 Alcohol dependence, uncomplicated; K76.0 Fatty (change of) liver, not elsewhere classified; G47.33 Obstructive sleep apnea (adult) (pediatric); E87.6 Hypokalemia; Z87.81 Personal history of (healed) traumatic fracture; Z79.899 Other long term (current) drug therapy
CPT/HCPCS: 0241U; 36415; 71045; 76705; 80048; 80053; 80069; 80076; 82803; 83735; 83880; 84145; 84484; 85025; 85379; 93005; 93010; 93306; 94664; 94760; 94761; 94762; 96365; 99285-25; A9270; C9113; C9399; J0248; J0360; J0696; J1100; J1650; J1940; J3480; J7030; J7040; J7050; J7060